=== PATIENT | male | born 1955 | race Caucasian/White ===

== ENCOUNTER 2017-02-02 14:27 | Emergency (ER) | payer OTHER ==
[2017-02-02 14:37] VITALS: BP 149/72; PULSE 74; TEMP 98.2; BMI 27.4
[2017-02-02] MEDS ORDERED: TETRACAINE 0.5% OPHTH SOLN 2 ML BOTTLE ONE (15:32)
--- NOTE | 2017-02-02 15:42 | PDOC ---
History of Present Illness - General Chief Complaint: Eye Problem Stated Complaint: EYE PROBLEM Time Seen by Provider: 02/02/17 14:59 History Source: Patient, Family (son) Exam Limitations: Language Barrier - History of Present Illness Initial Comments: 02/02/17 15:46 61 yr male history of DM, liver CA, high cholesterol presents to ER with left eye redness, itching and burning since yesterday morning woke up with discomfort. Pt denies injury, states he has blurred vision but no double vision or floaters. Pt does not have an eye doctor. Past History - Past Medical History Allergies/Adverse Reactions: Allergies Allergy/AdvReac Type Severity Reaction Status Date / Time Penicillins Allergy Intermediate Rash Verified 02/02/17 14:34 Home Medications: Ambulatory Orders Aspirin [ASA -] 81 mg PO DAILY 11/18/15 Atorvastatin Ca [Lipitor] 10 mg PO HS 11/18/15 Enalapril Maleate [Vasotec -] 20 mg PO DAILY 11/18/15 Gemfibrozil [Lopid -] 600 mg PO DAILY 11/18/15 Metformin HCl [Glucophage] 1,000 mg PO BID 11/18/15 Metoprolol Succinate [Toprol XL -] 25 mg PO DAILY 11/18/15 Terazosin HCl 2 mg PO DAILY 11/18/15 Cancer: Yes (colon, mets liver) Diabetes: Yes HTN: Yes Hypercholesterolemia: Yes Liver Disease: Yes (ca) - Immunization History Immunization Up to Date: Yes - Psycho/Social/Smoking Cessation Hx Suicidal Ideation: No Smoking History: Never smoked Hx Alcohol Use: No Drug/Substance Use Hx: No *Physical Exam - Vital Signs Last Vital Signs Temp Pulse Resp BP Pulse Ox 98.2 F 74 19 149/72 95 02/02/17 14:34 02/02/17 14:34 02/02/17 14:34 02/02/17 14:34 02/02/17 14:34 - Physical Exam General Appearance: Yes: Nourished, Appropriately Dressed HEENT: positive: EOMI, JENNA, Other (left eye with subconjunctival hemorrhage covering 75% sclera, tearing , PERLAEOMI no pain with EOM) Neck: positive: Supple Respiratory/Chest: positive: Lungs Clear, Normal Breath Sounds Cardiovascular: positive: Regular Rhythm, Regular Rate Extremity: positive: Normal Inspection, Normal Range of Motion Integumentary: positive: Normal Color, Dry, Warm Neurologic: positive: Fully Oriented, Alert, Normal Mood/Affect, Normal Response , Motor Strength 02/04 ED Treatment Course - Consult/PCP Time Called: 03:30 Consult Reason/Comments: optbernadette Saenz will see pt in office now Medical Decision Making - Medical Decision Making 02/02/17 15:49 cc: left eye red, tearing burning and itching no trauma no discharge blurry vision will consult optho peyton Saenz can see pt now in office son agrees to drive him there now to the office. *DC/Admit/Observation/Transfer Diagnosis at time of Disposition: Subconjunctival edema of left eye, Subconjunctival hemorrhage of left eye - Discharge Dispostion Disposition: HOME Condition at time of disposition: Good - Referrals Referrals: Liz Dixon [Primary Care Provider] - Bob Pichardo MD [Staff Physician] - - Patient Instructions Additional Instructions: please go directly to the eye doctors office now they are waiting for you [address] [facility] second floor [place], [place] (opthomologist)
== END 2017-02-02 16:03 | disposition home or self-care (01) ==
LOC: JERFT 14:27
DX: H11.422 Conjunctival edema, left eye (principal); H11.32 Conjunctival hemorrhage, left eye; Z85.038 Personal history of other malignant neoplasm of large intestine; I10 Essential (primary) hypertension; E78.00 Pure hypercholesterolemia, unspecified; Z85.05 Personal history of malignant neoplasm of liver
CPT/HCPCS: 99281-25

== ENCOUNTER 2017-03-31 14:13 | Inpatient (IN) | payer OTHER ==
[2017-03-31 14:20] VITALS: BMI 29.9
[2017-03-31] MEDS ORDERED: SODIUM CHLORIDE 1,000 ML IV SCH (14:30)
--- NOTE | 2017-03-31 14:48 | PDOC ---
History of Present Illness - General History Source: Patient, Family Exam Limitations: Language Barrier - History of Present Illness Initial Comments: 03/31/17 14:49 This is a 61 yo M with PMH of NIDDM2, colon ca with liver mets (dx 4 yrs ago), hld, htn, who presents due to abdominal pain x 4 days. He developed diarrhea 1 w ago, nonmelenous, nonbloody, evy colored. 4 days ago he took an immodium, which stopped diarrhea but soon after he developed central abd pain. It is constant, sharp, nonradiating, worst abd pain he has ever felt, has no aggravating or alleviated factors and associated with nausea and anorexia. His last chemo was 2 weeks ago, he has been on current chemo regimen for the past year. He has not started any new meds, has not eaten any new foods, has no sick contacts,has not recently been hospitalized or used abx. He reports weakness and h/a. He denies sob, chest pain, cough, dysuria, LE edema. 03/31/17 15:16 03/31/17 15:44 <Mel Denise - Last Filed: 03/31/17 19:00> <Adams Marroquin - Last Filed: 03/31/17 23:52> - General Chief Complaint: Pain Stated Complaint: DIARRHEA Time Seen by Provider: 03/31/17 14:27 Past History - Past Medical History Cancer: Yes (colon, mets liver, Getting Chemo) Diabetes: Yes HTN: Yes Hypercholesterolemia: Yes Liver Disease: Yes (ca) - Immunization History Immunization Up to Date: Yes - Psycho/Social/Smoking Cessation Hx Suicidal Ideation: No Smoking History: Never smoked Information on smoking cessation initiated: No Hx Alcohol Use: No Drug/Substance Use Hx: No Substance Use Type: None <Mel Denise - Last Filed: 03/31/17 19:00> <Adams Marroquin - Last Filed: 03/31/17 23:52> - Past Medical History Allergies/Adverse Reactions: Allergies Allergy/AdvReac Type Severity Reaction Status Date / Time Penicillins Allergy Intermediate Rash Verified 03/31/17 14:20 Home Medications: Ambulatory Orders Aspirin [ASA -] 81 mg PO DAILY 11/18/15 Atorvastatin Ca [Lipitor] 10 mg PO HS 11/18/15 Enalapril Maleate [Vasotec -] 20 mg PO DAILY 11/18/15 Gemfibrozil [Lopid -] 600 mg PO DAILY 11/18/15 Metformin HCl [Glucophage] 1,000 mg PO BID 11/18/15 Metoprolol Succinate [Toprol XL -] 25 mg PO DAILY 11/18/15 Terazosin HCl 2 mg PO DAILY 11/18/15 Review of Systems - Review of Systems Able to Perform ROS?: Yes Is the patient limited Welsh proficient: No Constitutional: No: Chills, Fever, Weight Stable HEENTM: No: Nose Congestion, Throat Pain, Difficulty Swallowing Respiratory: No: Cough, Orthopnea, Shortness of Breath, Stridor Cardiac (ROS): No: Chest Pain, Edema, Lightheadedness, Palpitations ABD/GI: Yes: Abdominal Distended, Diarrhea, Nausea, Poor Appetite, Abdominal cramping. No: Blood Streaked Bowels, Rectal Bleeding, Vomiting, Tarry Stools : No: Dysuria, Flank Pain Musculoskeletal: No: Back Pain, Joint Pain, Neck Pain Integumentary: No: Bruising, Erythema, Pruritus, Rash Neurological: Yes: Headache, Weakness. No: Numbness, Paresthesia Psychiatric: No: Depression Endocrine: No: Change in Weight Hematologic/Lymphatic: No: Easy Bleeding, Easy Bruising All Other Systems: Reviewed and Negative <Mel Denise - Last Filed: 03/31/17 19:00> *Physical Exam - Vital Signs Last Vital Signs Temp Pulse Resp BP Pulse Ox 97.5 F L 70 17 171/101 97 03/31/17 14:18 03/31/17 14:18 03/31/17 14:18 03/31/17 14:18 03/31/17 14:18 - Physical Exam Comments: 03/31/17 15:48 General: NAD, aao x 3 HEENT: normocephalic, atraumatic, PERRLA, EOMI, sclera anicteric, conjunctiva clear, moist mucous membranes CV: RRR S1S2 Resp: cta b/l GI: reduced bowel sounds, soft, mildly distended, moderately tender periumbilical region, no rebound, no guarding, no mass, LLQ port Rectal exam: empty vault. intact rectal tone, no lesions noted, not painful Neuro: CN II-XII grossly intact Musculoskeletal:no peripheral edema. 03/31/17 17:23 03/31/17 17:44 <Mel Denise - Last Filed: 03/31/17 19:00> - Vital Signs Last Vital Signs Temp Pulse Resp BP Pulse Ox 97.5 F L 70 17 171/101 97 03/31/17 14:18 03/31/17 14:18 03/31/17 14:18 03/31/17 14:18 03/31/17 14:18 <Adams Marroquin - Last Filed: 03/31/17 23:52> Heart Score/ECG Review #1 General ECG Interpretation: Sinus Rhythm, Normal Rate (alexsander 59), Normal Intervals, No acute ischemic changes <Mel Denise - Last Filed: 03/31/17 19:00> ED Treatment Course - LABORATORY CBC & Chemistry Diagram: 03/31/17 15:00 03/31/17 15:00 <Mel Denise - Last Filed: 03/31/17 19:00> - LABORATORY CBC & Chemistry Diagram: 03/31/17 15:00 03/31/17 15:00 - ADDITIONAL ORDERS Additional order review: Laboratory Results 03/31/17 03/31/17 03/31/17 16:20 15:35 15:00 Sodium 137 Potassium 4.0 Chloride 104 Carbon Dioxide 25 Anion Gap 8 BUN 11 Creatinine 0.7 Creat Clearance w eGFR > 60 Random Glucose 127 H Lactic Acid 0.6 Calcium 8.8 Total Bilirubin 0.9 AST 161 H ALT 134 H Alkaline Phosphatase 191 H Total Protein 7.7 Albumin 4.0 Lipase 59 L Stool Occult Blood Negative 03/31/17 15:00 RBC 3.80 L MCV 87.6 MCHC 33.3 RDW 18.0 H MPV 7.1 L Neutrophils % 71.7 Lymphocytes % 16.1 Monocytes % 10.9 H Eosinophils % 1.0 Basophils % 0.3 - Medications Given in the ED: ED Medications Discontinued Medications Generic Name Dose Route Start Last Admin Trade Name Freq PRN Reason Stop Dose Admin Morphine Sulfate 2 mg 03/31/17 15:10 03/31/17 15:26 Morphine Injection - IVPUSH 03/31/17 15:11 2 mg ONCE ONE Administration Ondansetron HCl 4 mg 03/31/17 15:10 03/31/17 15:26 Zofran Injection IVPUSH 03/31/17 15:11 4 mg ONCE ONE Administration <Adams Marroquin - Last Filed: 03/31/17 23:52> Medical Decision Making - Medical Decision Making 03/31/17 15:51 Patient presents with diarrhea that was stopped with over the counter meds and now has abd pain r/o c diff, infectious colitis, obstruction, chemo related colonic edema. CBC w diff cmp lactic acid, lipase, c diff, stool occult, stool gram stain and culture ekg CT and w PO and IV contrast IVF 1L NS, morphine, zofran 03/31/17 15:55 CBC no white count, mild anemia cmp transaminitis with no labs to compare to, it is consistent with hepatic mets , low suspicion for cholangitis at this time considering wnl t bili and wbc Laboratory Tests 03/31/17 15:00 AST 161 H ALT 134 H Alkaline Phosphatase 191 H 03/31/17 15:56 bedside US shows nondilated bile ducts blood occult negative 03/31/17 15:57 03/31/17 15:57 CT abdoment and pelvis with po and iv contrast pending. 03/31/17 17:28 03/31/17 17:28 03/31/17 17:29 03/31/17 19:00 <Mel Denise - Last Filed: 03/31/17 19:00> *DC/Admit/Observation/Transfer <Mel Denise - Last Filed: 03/31/17 19:00> - Discharge Dispostion Admit: Yes <Adams Marroquin - Last Filed: 03/31/17 23:52> Diagnosis at time of Disposition: Ileus Abdominal pain Qualifiers: Abdominal location: unspecified location Qualified Code(s): R10.9 - Unspecified abdominal pain - Discharge Dispostion Condition at time of disposition: Fair - Referrals Referrals: Liz Dixon [Primary Care Provider] -
--- NOTE | 2017-03-31 14:52 | PDOC ---
Attending Attestation - Resident Resident Name: CameliaGmMel - ED Attending Attestation I have performed the following: I have examined & evaluated the patient, The case was reviewed & discussed with the resident, I agree w/resident's findings & plan, Exceptions are as noted - HPI HPI: 03/31/17 14:52 The patient is a 61 year old male with a significant past medical history of HTN , HLD, DM2 and metastatic colon cancer who presents with abdominal pain and diarrhea. The diarrhea has been intermittent for the past 2 weeks. He reports 2-4 episodes per day (no blood or mucous). He took Immodium 4 days ago and then several hours later developed abdominal pain. It is diffuse, constant, non -radiating. He has had nausea with decreased po intake. No vomiting. Last chemotherapy 2 weeks ago. No recent hospitalization or antibiotic use. No PPI use. - Physicial Exam PE: 03/31/17 14:53 Vitals noted Mild abdominal tenderness to deep palpation diffusely, most pronounced in the honey-umbillical area. There is mild distention. Bowel sounds are somewhat decreased. Midline vertical scar (partial colectomy) 03/31/17 15:18 - Medical Decision Making 03/31/17 15:19 He is well appearing and in no acute distress Will obtain labs including lactic acid We will require CT imaging 03/31/17 16:[address] pending Urinalysis pending Lactic acid pending 03/31/17 16:30 03/31/17 16:49 Stool guaic negative Lactic acid pending CT pending Clinical impression: Abdominal pain Case discussed in detail with oncoming Emergency Physician including history, physical exam and ancillary studies. Oncoming Emergency Physician has assumed care for the patient and will complete the evaluation and treatment. Discharge Disposition - Diagnosis Abdominal pain - Referrals Referrals: Liz Dixon [Primary Care Provider] -
[2017-03-31] MEDS ORDERED: ONDANSETRON 4 MG/2 ML VIAL IVPUSH ONE (15:10)
[2017-03-31] MEDS ORDERED: morphine CARPU-JECT 2 MG/1 ML DISP.SYRIN IVPUSH ONE (15:10)
[2017-03-31] MEDS ORDERED: morphine CARPU-JECT 2 MG/1 ML DISP.SYRIN ONE (15:18)
[2017-03-31] MEDS ORDERED: ONDANSETRON 4 MG/2 ML VIAL ONE (15:19)
[2017-03-31 15:33] LABS: BASOPHIL 0.3 % (0-2.0); MCH 29.2 pg (25.7-33.7); MCHC 33.3 g/dl (32.0-35.9); MEAN CELL VOLUME 87.6 fl (80-96); MEAN PLT VOLUME 7.1 fl (7.5-11.1); NEUTROPHILS 71.7 % (42.8-82.8); PLATELET COUNT 189 K/MM3 (134-434); WHITE BLOOD COUNT 4.8 K/mm3 (4.0-10.0)
[2017-03-31 15:44] LABS: ALK PHOS 191 U/L (45-117); ANION GAP 8 (8-16); BILIRUBIN,TOTAL 0.9 mg/dL (0.2-1.0); CALCIUM 8.8 mg/dL (8.5-10.1); CO2 25 mmol/L (21-32); CREATININE 0.7 mg/dL (0.7-1.3); GLUCOSE,RANDOM 127 mg/dL (74-106); SGPT/ALT 134 U/L (12-78); TOT PROT 7.7 g/dl (6.4-8.2)
[2017-03-31 15:45] LABS: SGOT/AST 161 U/L (15-37)
--- NOTE | 2017-03-31 15:54 | EKG ---
Test Reason : Blood Pressure : / mmHG Vent. Rate : 059 BPM Atrial Rate : 059 BPM P-R Int : 192 ms QRS Dur : 092 ms QT Int : 408 ms P-R-T Axes : 034 039 051 degrees QTc Int : 403 ms SINUS BRADYCARDIA OTHERWISE NORMAL ECG NO PREVIOUS ECGS AVAILABLE Confirmed by MITUL OLEARY MD ([id number]) on 03/31/2017 3:53:36 PM Referred By: Confirmed By:MITUL OLEARY MD
[2017-03-31] MEDS ORDERED: DEXTROSE 5%-0.45% SALINE 1,000 ML IV SCH (23:30)
--- NOTE | 2017-04-01 00:14 | HP ---
CHIEF COMPLAINT: Abdominal Pain PCP: Dr. Liz Kearney Oncologist: Dr. Wil Abreu ([facility] [place] [place] [address], ) HISTORY OF PRESENT ILLNESS: This is a 61 y/o male with a significant medical history of Metastatic Colon Ca 2014 (on chemo), Diabetes, Dyslipidemia, Who presents to the ED with abdominal pain x 4 days. Patient is Italian speaking, his granddaughter translated. Patient reports the quality as sharp, constant non radiating. He reports having watery diarrhea non melanous, non bloody x 1 week, he took Lomotil for 4 days. Patient denies fever, chills, cough, SOB, dizziness, CP, melena, hematochezia, dysuria. Patient denies any new medications, food or recent sick exposures. Last chemo- 2 weeks ago. ER course was notable for: (1) CTAP- Possible mild ileus, small left ingunial hernia fat.small amt free fluids, small right ingunial hernia fat containing (2) Transaminitis- 161/134/194 (3) Stool Occult- negative Recent Travel: None PAST MEDICAL HISTORY: See HPI PAST SURGICAL HISTORY: s/p cholececomy Colon Resection Partial Colectomy Percutaneous drainage catheter Social History: Smoking: Never Alcohol: Denies Drugs: Denies Lives with family Family History: Non Contributory Allergies Penicillins Allergy (Intermediate, Verified 03/31/17 14:20) Rash HOME MEDICATIONS: Home Medications Medication Instructions Recorded Aspirin [ASA -] 81 mg PO DAILY 11/18/15 Atorvastatin Ca [Lipitor] 10 mg PO HS 11/18/15 Enalapril Maleate [Vasotec -] 20 mg PO DAILY 11/18/15 Gemfibrozil [Lopid -] 600 mg PO DAILY 11/18/15 Metformin HCl [Glucophage] 1,000 mg PO BID 11/18/15 Metoprolol Succinate [Toprol XL -] 25 mg PO DAILY 11/18/15 Terazosin HCl 2 mg PO DAILY 11/18/15 REVIEW OF SYSTEMS CONSTITUTIONAL: Absent: fever, chills, diaphoresis, generalized weakness, malaise, loss of appetite, weight change HEENT: Absent: rhinorrhea, nasal congestion, throat pain, throat swelling, difficulty swallowing, mouth swelling, ear pain, eye pain, visual changes CARDIOVASCULAR: Absent: chest pain, syncope, palpitations, irregular heart rate, lightheadedness , peripheral edema RESPIRATORY: Absent: cough, shortness of breath, dyspnea with exertion, orthopnea, wheezing, stridor, hemoptysis GASTROINTESTINAL: abdominal pain, nausea, vomiting, diarrhea, constipation, Absent: abdominal distension, melena, hematochezia GENITOURINARY: Absent: dysuria, frequency, urgency, hesitancy, hematuria, flank pain, genital pain MUSCULOSKELETAL: Absent: myalgia, arthralgia, joint swelling, back pain, neck pain SKIN: Absent: rash, itching, pallor HEMATOLOGIC/IMMUNOLOGIC: Absent: easy bleeding, easy bruising, lymphadenopathy, frequent infections ENDOCRINE: Absent: unexplained weight gain, unexplained weight loss, heat intolerance, cold intolerance NEUROLOGIC: headache Absent: focal weakness or paresthesias, dizziness, unsteady gait, seizure, mental status changes, bladder or bowel incontinence PSYCHIATRIC: Absent: anxiety, depression, suicidal or homicidal ideation, hallucinations. PHYSICAL EXAMINATION GENERAL: Awake, alert, and fully oriented, in no acute distress. HEAD: Normal with no signs of trauma. EYES: Pupils equal, round and reactive to light, extraocular movements intact, sclera anicteric, conjunctiva clear. No lid lag. EARS, NOSE, THROAT: Dry mucous membranes. Ears normal, nares patent, oropharynx clear without exudates. NECK: Normal range of motion, supple without lymphadenopathy, JVD, or masses. LUNGS: Breath sounds equal, clear to auscultation bilaterally. No wheezes, and no crackles. No accessory muscle use. HEART: Regular rate and rhythm, normal S1 and S2 without murmur, rub or gallop. ABDOMEN: Soft, mildly distended, umbilical and mid lower quad tenderness, hypoactive bowel sounds, port LLQ. No guarding, no rebound, no masses. No hepatomegaly or splenomegaly. MUSCULOSKELETAL: Normal range of motion at all joints. No bony deformities or tenderness. No CVA tenderness. UPPER EXTREMITIES: 2+ pulses, warm, well-perfused. No cyanosis. No clubbing. No peripheral edema. LOWER EXTREMITIES: 2+ pulses, warm, well-perfused. No calf tenderness. No peripheral edema. NEUROLOGICAL: Cranial nerves II-XII intact. Normal speech. Gait not observed. PSYCHIATRIC: Cooperative. Good eye contact. Appropriate mood and affect. SKIN: Warm, dry, normal turgor, no rashes or lesions noted, normal capillary refill. Laboratory Results - last 24 hr 03/31/17 03/31/17 03/31/17 15:00 15:00 15:35 WBC 4.8 RBC 3.80 L Hgb 11.1 L Hct 33.3 L MCV 87.6 MCHC 33.3 RDW 18.0 H Plt Count 189 MPV 7.1 L Neutrophils % 71.7 Lymphocytes % 16.1 Monocytes % 10.9 H Eosinophils % 1.0 Basophils % 0.3 Sodium 137 Potassium 4.0 Chloride 104 Carbon Dioxide 25 Anion Gap 8 BUN 11 Creatinine 0.7 Creat Clearance w eGFR > 60 Random Glucose 127 H Lactic Acid 0.6 Calcium 8.8 Total Bilirubin 0.9 AST 161 H ALT 134 H Alkaline Phosphatase 191 H Total Protein 7.7 Albumin 4.0 Lipase 59 L Stool Occult Blood 03/31/17 16:20 WBC RBC Hgb Hct MCV MCHC RDW Plt Count MPV Neutrophils % Lymphocytes % Monocytes % Eosinophils % Basophils % Sodium Potassium Chloride Carbon Dioxide Anion Gap BUN Creatinine Creat Clearance w eGFR Random Glucose Lactic Acid Calcium Total Bilirubin AST ALT Alkaline Phosphatase Total Protein Albumin Lipase Stool Occult Blood Negative ASSESSMENT/PLAN: This is a 61 y/o male PMHx of: Metastatic Colon Ca 2014 (on chemo), DM, HLD. Admitted to M/S with Abdominal Pain, ? Ileus for further evaluation of their emergent condition. 1. GI: Ileus - Likely secondary to advance metastatic disease - CTAP- reviewed - Appreciate Surgical Consult - NGT - NPO - IVF - Monitor CBC, BMP - Avoid opioids 2. Abdominal Pain - See above 3. Metastatic Colon Ca - Contacted patient's niece (Raissa Gaitan, ), the patient is receiving chemo Q2 weeks, due Sunday 04/01. - Will need to verify with patient's Oncologist Dr. Wil Marcum ([phone]) , from [facility] [place] - Appreciate Oncology Consult 4. Transaminitis - Likely secondary to chemo - Monitor LFTs 5. Hyperlipidema - Will hold home med, until tolerating PO 6. Diabetes - BGMs - ISS - Hold Metformin 7. FEN - D5 1/2NS@60cc/hr - Replete lytes prn - NPO 8. DVT Prophylaxis - SCDs - Heparin SQ Code Status: Full Code Dispo: Requires Inpatient Care Problem List - Problem (1) Ileus Code(s): K56.7 - ILEUS, UNSPECIFIED (2) Abdominal pain Code(s): R10.9 - UNSPECIFIED ABDOMINAL PAIN Qualifiers: Abdominal location: unspecified location Qualified Code(s): R10.9 - Unspecified abdominal pain (3) Transaminitis Code(s): R74.0 - NONSPEC ELEV OF LEVELS OF TRANSAMNS & LACTIC ACID DEHYDRGNSE (4) Colon cancer metastasized to liver Code(s): C18.9 - MALIGNANT NEOPLASM OF COLON, UNSPECIFIED C78.7 - SECONDARY MALIG NEOPLASM OF LIVER AND INTRAHEPATIC BILE DUCT (5) Dyslipidemia Code(s): E78.5 - HYPERLIPIDEMIA, UNSPECIFIED (6) Diabetes mellitus Code(s): E11.9 - TYPE 2 DIABETES MELLITUS WITHOUT COMPLICATIONS (7) DVT prophylaxis Code(s): [id number] - Visit type - Emergency Visit Emergency Visit: Yes ED Registration Date: 03/31/17 Care time: The patient presented to the Emergency Department on the above date and was hospitalized for further evaluation of their emergent condition. - New Patient This patient is new to me today: Yes Date on this admission: 03/31/17 - Critical Care Critical Care patient: No
[2017-04-01] MEDS ORDERED: KETOROLAC TROMETHAMINE 30 MG/1 ML VIAL IVPUSH ONE (00:15)
[2017-04-01] MEDS ORDERED: KETOROLAC TROMETHAMINE 30 MG/1 ML VIAL ONE (01:30)
[2017-04-01 08:11] LABS: BASOPHIL 0.3 % (0-2.0); MCH 29.6 pg (25.7-33.7); MCHC 34.3 g/dl (32.0-35.9); MEAN CELL VOLUME 86.2 fl (80-96); MEAN PLT VOLUME 6.8 fl (7.5-11.1); NEUTROPHILS 61.3 % (42.8-82.8); PLATELET COUNT 156 K/MM3 (134-434); RDW 17.9 % (11.9-15.9)
--- NOTE | 2017-04-01 08:13 | PN ---
Physical Exam: SUBJECTIVE: Patient seen and examined OBJECTIVE: Vital Signs Period Temp Pulse Resp BP Sys/Elder Pulse Ox Last 24 Hr 97.5 F-98 F 55-60 16-20 135-153/75-79 96-96 GENERAL: The patient is awake, alert, and fully oriented, in no acute distress. HEAD: Normal with no signs of trauma. EYES: PERRL, extraocular movements intact, sclera anicteric, conjunctiva clear. No ptosis. ENT: Ears normal, nares patent, oropharynx clear without exudates, moist mucous membranes. NECK: Trachea midline, full range of motion, supple. LUNGS: Breath sounds equal, clear to auscultation bilaterally, no wheezes, no crackles, no accessory muscle use. HEART: Regular rate and rhythm, S1, S2 without murmur, rub or gallop. ABDOMEN: Soft, nontender, nondistended, normoactive bowel sounds, no guarding, no rebound, no hepatosplenomegaly, no masses. EXTREMITIES: 2+ pulses, warm, well-perfused, no edema. NEUROLOGICAL: Cranial nerves II through XII grossly intact. Normal speech, gait not observed. PSYCH: Normal mood, normal affect. SKIN: Warm, dry, normal turgor, no rashes or lesions noted Active Medications Generic Name Dose Route Start Last Admin Trade Name Freq PRN Reason Stop Dose Admin Heparin Sodium (Porcine) 5,000 unit 04/01/17 10:00 Heparin - SQ BID [facility] Dextrose/Sodium Chloride 1,000 mls @ 125 mls/hr 03/31/17 23:30 03/31/17 23:45 D5-1/2ns - IV 125 mls/hr ASDIR [facility] Administration ASSESSMENT/PLAN:
[2017-04-01 08:41] LABS: ANION GAP 8 (8-16); CALCIUM 8.2 mg/dL (8.5-10.1); CO2 27 mmol/L (21-32); CREATININE 0.7 mg/dL (0.7-1.3); GLUCOSE,RANDOM 146 mg/dL (74-106)
[2017-04-01] MEDS ORDERED: ACETAMINOPHEN 325 MG TABLET (FP) PO PRN (08:54)
[2017-04-01] MEDS: HEPARIN NA (PORCINE) 5,000 UNITS/ML 1ML VIAL SQ SCH ×2 (09:12→21:29)
[2017-04-01] MEDS: ACETAMINOPHEN 650 MG SUPP.RECT PR PRN (09:28)
[2017-04-01 09:51] LABS: URINE APPEARANCE CLEAR; URINE BILIRUBIN NEGATIVE (NEGATIVE); URINE BLOOD NEGATIVE (NEGATIVE); URINE COLOR LTYELLOW; URINE GLUCOSE (UA) NEGATIVE (NEGATIVE); URINE KETONE TRACE (NEGATIVE); URINE LEUK ESTERASE NEGATIVE (NEGATIVE); URINE NITRITE NEGATIVE (NEGATIVE); URINE PROTEIN NEGATIVE (NEGATIVE); URINE UROBILINOGEN NEGATIVE E.U./dl (0.2-1.0)
--- NOTE | 2017-04-01 10:30 | PN ---
Physical Exam: SUBJECTIVE: Patient seen and examined in bed. States his current pain level is 4 /10. NGT in place, connected to LWS. No output from NGT. Passing flatus. No stool. OBJECTIVE: Vital Signs 3 Period Temp Pulse Resp BP Sys/Elder Pulse Ox Last 24 Hr 97.5 F-98 F 55-60 16-20 135-153/75-79 96-96 GENERAL: The patient is awake, alert, and fully oriented, in no acute distress. HEAD: Normal with no signs of trauma. EYES: PERRL, extraocular movements intact, sclera anicteric, conjunctiva clear. No ptosis. ENT: Ears normal, nares patent, oropharynx clear without exudates, moist mucous membranes. NGT in Left nare. LUNGS: Breath sounds equal, clear to auscultation bilaterally, no wheezes, no crackles, no accessory muscle use. HEART: Regular rate and rhythm, S1, S2 without murmur, rub or gallop. ABDOMEN: Soft, nontender, nondistended, normoactive bowel sounds, no guarding, no rebound, no hepatosplenomegaly. Implanted mediport noted to left middle abdomen. EXTREMITIES: 2+ pulses, warm, well-perfused, no edema. NEUROLOGICAL: Cranial nerves II through XII grossly intact. Normal speech, gait not observed. PSYCH: Normal mood, normal affect. SKIN: Warm, dry, normal turgor, no rashes or lesions noted Laboratory Results - last 24 hr 3 04/01/17 04/01/17 06:50 06:50 WBC 3.0 L D RBC 3.41 L Hgb 10.1 L Hct 29.4 L MCV 86.2 MCHC 34.3 RDW 17.9 H Plt Count 156 MPV 6.8 L Neutrophils % 61.3 Lymphocytes % 23.3 D Monocytes % 13.1 H Eosinophils % 2.0 D Basophils % 0.3 Sodium 138 Potassium 3.4 L Chloride 103 Carbon Dioxide 27 Anion Gap 8 BUN 10 Creatinine 0.7 Random Glucose 146 H Calcium 8.2 L Active Medications 3 Generic Name Dose Route Start Last Admin Trade Name Freq PRN Reason Stop Dose Admin Acetaminophen 650 mg 04/01/17 09:01 04/01/17 09:28 Tylenol Suppository - ID 650 mg Q6H PRN Administration FEVER OR PAIN Heparin Sodium (Porcine) 5,000 unit 04/01/17 10:00 04/01/17 09:12 Heparin - SQ 5,000 unit BID GERONIMO Administration Dextrose/Sodium Chloride 1,000 mls @ 125 mls/hr 03/31/17 23:30 03/31/17 23:45 D5-1/2ns - IV 125 mls/hr ASDIR GERONIMO Administration Imaging: CTAP w/and w/o as read by Jack: Status post cholecystectomy. Percutaneous drainage catheter in place. Small amount of free fluid in gallbladder fossa and hepatorenal fossa. Several hepatic hypodense lesions are noted which may be the basis of neoplastic disease. Possible mild to moderate ileus. Small left inguinal hernia containing fat and a small amount of free fluid. Small right inguinal hernia containing fat only. ASSESSMENT/PLAN: A: 61yo man with partial SBO likely from metastatic colon CA. WBC downtrending. Denies infectious symptoms. Remains afebrile. P: 1. SBO- likely from colon CA - NGT-> LWS - monitor electrolytes - KCL 10mEq IVSS for K-3.4 down from 4.0 - NPO - change fluids to D5-1/2NS with 20mEq KCl @125 - appreciate surgical consult 2. Abdominal pain - see above 3. Leukopenia - WBC 4.8->3.0 - likely from opal - trend fevers - due for chemo dose today- ok to hold per Wil Marcum [place] [facility] [place] 4. Transaminitis - repeat now and daily - likely from chemo 5. DM - FSBG qACHS - ISS 6. HLD - hold home meds given transaminitis 7. F/E/N - D5-1/2NS with 20mEq Kcl@125 - NPO - replete prn 8. PPX - heparin - oob Visit type - Emergency Visit Emergency Visit: Yes ED Registration Date: 03/31/17 Care time: The patient presented to the Emergency Department on the above date and was hospitalized for further evaluation of their emergent condition. - New Patient This patient is new to me today: Yes Date on this admission: 04/01/17 - Critical Care Critical Care patient: No
[2017-04-01] MEDS: D5-1/2NS+20 MEQ KCL - 1,000 ML IV SCH (11:00)
[2017-04-01] MEDS ORDERED: KCL 10 MEQ IVPB 100 ML IVPB SCH (11:10)
[2017-04-01 11:46] LABS: ALBUMIN 3.3 g/dl (3.4-5.0); ANION GAP 9 (8-16); BILIRUBIN,TOTAL 0.7 mg/dL (0.2-1.0); CALCIUM 8.3 mg/dL (8.5-10.1); CO2 25 mmol/L (21-32); CREATININE 0.7 mg/dL (0.7-1.3); GLUCOSE,RANDOM 151 mg/dL (74-106); SGOT/AST 153 U/L (15-37); SGPT/ALT 158 U/L (12-78); TOT PROT 6.5 g/dl (6.4-8.2)
[2017-04-01 11:47] LABS: ALK PHOS 219 U/L (45-117)
--- NOTE | 2017-04-01 19:03 | CONSULT ---
Consult Consult Specialty:: Surgery: Reason for Consultation:: Abdominal pain - History of Present Illness History of Present Illness: Patient with metastatic colon cancer with metastasis to liver , c/o vague abdominal pain, No nausea, no vomitind. He has been receiving chemotherapy. - History Source History Provided By: Patient Limitations to Obtaining History: Language Barrier - Alcohol/Substance Use Hx Alcohol Use: No - Smoking History Smoking history: Never smoked Home Medications - Allergies Allergies/Adverse Reactions: Allergies Allergy/AdvReac Type Severity Reaction Status Date / Time Penicillins Allergy Intermediate Rash Verified 03/31/17 14:20 - Home Medications Home Medications: Ambulatory Orders Aspirin [ASA -] 81 mg PO DAILY 11/18/15 Atorvastatin Ca [Lipitor] 10 mg PO HS 11/18/15 Enalapril Maleate [Vasotec -] 20 mg PO DAILY 11/18/15 Gemfibrozil [Lopid -] 600 mg PO DAILY 11/18/15 Metformin HCl [Glucophage] 1,000 mg PO BID 11/18/15 Metoprolol Succinate [Toprol XL -] 25 mg PO DAILY 11/18/15 Terazosin HCl 2 mg PO DAILY 11/18/15 Physical Exam Vital Signs: Vital Signs Temperature 98.1 F 04/01/17 14:15 Pulse Rate 57 L 04/01/17 14:15 Respiratory Rate 22 04/01/17 09:00 Blood Pressure 162/78 04/01/17 14:15 O2 Sat by Pulse Oximetry (%) 94 L 04/01/17 09:00 Labs: CBC, BMP 04/01/17 06:50 04/01/17 06:50 Imaging - Results Cat Scan: Report Reviewed, Image Reviewed Problem List - Problems (1) Abdominal pain Code(s): R10.9 - UNSPECIFIED ABDOMINAL PAIN Qualifiers: Abdominal location: unspecified location (2) Liver metastasis Code(s): C78.7 - SECONDARY MALIG NEOPLASM OF LIVER AND INTRAHEPATIC BILE DUCT (3) Carcinoma of colon Code(s): C18.9 - MALIGNANT NEOPLASM OF COLON, UNSPECIFIED Assessment/Plan Patient does not have any acute abdominal events, no obstruction . Ct scan is normal. No acute surgical event.
[2017-04-02] MEDS: D5-1/2NS+20 MEQ KCL - 1,000 ML IV SCH ×2 (00:02→17:31)
[2017-04-02 09:02] LABS: BASOPHIL 0.1 % (0-2.0); EOSINOPHIL 1.3 % (0-4.5); MCH 29.5 pg (25.7-33.7); MCHC 33.7 g/dl (32.0-35.9); MEAN CELL VOLUME 87.6 fl (80-96); MEAN PLT VOLUME 6.6 fl (7.5-11.1); PLATELET COUNT 166 K/MM3 (134-434); RDW 18.3 % (11.9-15.9); WHITE BLOOD COUNT 4.6 K/mm3 (4.0-10.0)
--- NOTE | 2017-04-02 09:11 | PN ---
Physical Exam: SUBJECTIVE: Patient seen and examined seated on edge of bed. Has mild abdominal pain. NGT removed. OBJECTIVE: Vital Signs Period Temp Pulse Resp BP Sys/Elder Pulse Ox Last 24 Hr 98.1 F-99.0 F 57-64 16-20 153-168/78-95 GENERAL: The patient is awake, alert, and fully oriented, in no acute distress. HEAD: Normal with no signs of trauma. LUNGS: Breath sounds equal, clear to auscultation bilaterally, no wheezes, no crackles, no accessory muscle use. HEART: Regular rate and rhythm, S1, S2 without murmur, rub or gallop. ABDOMEN: Soft, mild RUQ tenderness, nondistended, normoactive bowel sounds, no guarding, no rebound EXTREMITIES: 2+ pulses, warm, well-perfused, no edema. NEUROLOGICAL: Cranial nerves II through XII grossly intact. Normal speech, moving all extremities. Laboratory Results - last 24 hr 04/01/17 06:50 Sodium 139 Potassium 3.5 Chloride 105 Carbon Dioxide 25 Anion Gap 9 BUN 9 Creatinine 0.7 Creat Clearance w eGFR > 60 Random Glucose 151 H Calcium 8.3 L Total Bilirubin 0.7 D AST 153 H ALT 158 H Alkaline Phosphatase 219 H Total Protein 6.5 Albumin 3.3 L Active Medications Generic Name Dose Route Start Last Admin Trade Name Freq PRN Reason Stop Dose Admin Acetaminophen 650 mg 04/01/17 09:01 04/01/17 09:28 Tylenol Suppository - [place] 650 mg Q6H PRN Administration FEVER OR PAIN Heparin Sodium (Porcine) 5,000 unit 04/01/17 10:00 04/01/17 21:29 Heparin - SQ 5,000 unit BID GERONIMO Administration Potassium Chloride/Dextrose/Sod Cl 1,000 mls @ 125 mls/hr 04/01/17 10:45 00:02 D5-1/2ns+20 Meq Kcl - IV 125 mls/hr ASDIR GERONIMO Administration Imaging 03/31 CTAP: possible minimal to mild ileus ASSESSMENT/PLAN 61 year-old male with a PMH of HTN, HLD, NIDDM, BPH, and metastatic colon cancer. Admitted with abdominal pain. Abdominal pain --seen and evaluated by surgery who reads CT scan as normal, no acute surgical event --NG tube removed; no nausea, vomiting; advance diet --no diarrhea; C. diff antigen positive, toxin negative; will start empiric flagyl for 7 day course Metastatic colon cancer --was due for chemo dose on 04/01; Dr. Marcum, oncologist at [facility] [place] aware Transaminitis --likely secondary to chemo --improving NIDDM --Novolog sliding scale coverage Hypertension --continue metoprolol, enalapril Hyperlipidemia --continue Lipitor BPH --continue terazosin F/E/N Fluids: PO intake adequate Electrolytes: replete as indicated Nutrition: full liquid low sodium DVT prophylaxis: subq heparin, oob, ambulation Dispo: continues to require inpatient care. Full code. Visit type - Emergency Visit Emergency Visit: Yes ED Registration Date: 03/31/17 Care time: The patient presented to the Emergency Department on the above date and was hospitalized for further evaluation of their emergent condition. - New Patient This patient is new to me today: Yes Date on this admission: 04/02/17 - Critical Care Critical Care patient: No
[2017-04-02 09:27] LABS: ALBUMIN 3.3 g/dl (3.4-5.0); ANION GAP 9 (8-16); CALCIUM 8.4 mg/dL (8.5-10.1); CO2 26 mmol/L (21-32); GLUCOSE,RANDOM 158 mg/dL (74-106)
[2017-04-02 09:30] LABS: ALK PHOS 225 U/L (45-117); BILIRUBIN,TOTAL 0.7 mg/dL (0.2-1.0); CREATININE 0.6 mg/dL (0.7-1.3); SGOT/AST 89 U/L (15-37); SGPT/ALT 127 U/L (12-78); TOT PROT 6.8 g/dl (6.4-8.2)
[2017-04-02] MEDS: HEPARIN NA (PORCINE) 5,000 UNITS/ML 1ML VIAL SQ SCH ×2 (10:46→21:44)
[2017-04-02] MEDS: ACETAMINOPHEN 650 MG SUPP.RECT PR PRN (10:58)
--- NOTE | 2017-04-02 13:10 | PN ---
Progress Note, Physician - Current Medication List Current Medications: Active Medications Acetaminophen (Tylenol Suppository -) 650 mg MO Q6H PRN PRN Reason: FEVER OR PAIN Last Admin: 04/02/17 10:58 Dose: 650 mg Heparin Sodium (Porcine) (Heparin -) 5,000 unit SQ BID [facility] Last Admin: 04/02/17 10:46 Dose: 5,000 unit Potassium Chloride/Dextrose/Sod Cl (D5-1/2ns+20 Meq Kcl -) 1,000 mls @ 125 mls/ hr IV ASDIR [facility] Last Admin: 04/02/17 00:02 Dose: 125 mls/hr - Objective Vital Signs: Vital Signs Temperature 99.0 F 04/02/17 06:00 Pulse Rate 64 04/02/17 06:00 Respiratory Rate 18 04/02/17 09:00 Blood Pressure 153/94 04/02/17 06:00 O2 Sat by Pulse Oximetry (%) 95 04/02/17 09:00 Labs: CBC, BMP 04/02/17 07:45 04/02/17 07:45 Problem List - Problems (1) Abdominal pain Code(s): R10.9 - UNSPECIFIED ABDOMINAL PAIN Qualifiers: Abdominal location: unspecified location (2) Liver metastasis Code(s): C78.7 - SECONDARY MALIG NEOPLASM OF LIVER AND INTRAHEPATIC BILE DUCT (3) Carcinoma of colon Code(s): C18.9 - MALIGNANT NEOPLASM OF COLON, UNSPECIFIED Assessment/Plan He feels better , has some pain in right upper quadrant of abdomen. No nausea, no vomiting. Abdomen is soft , not tender, no distention. Continue pallaitive care.
[2017-04-02] MEDS ORDERED: ACETAMINOPHEN 325 MG TABLET (FP) PO PRN (13:11)
[2017-04-02] MEDS: METRONIDAZOLE 500 MG PREMIXED 100 ML IVPB SCH ×2 (13:36→17:31)
[2017-04-02] MEDS ORDERED: PATIENT'S OWN MEDICATION (NON-FORMULARY) (Enalapril Maleate [Vasotec -] 20 MG) PO SCH (18:15)
[2017-04-02] MEDS ORDERED: TERAZOSIN HCL 2 MG CAPSULE PO SCH (18:15)
[2017-04-02] MEDS ORDERED: PT OWN MED DRAWER 7, Y5N ONE (18:31)
[2017-04-02] MEDS: ASPIRIN 81 MG CHEWABLE TABLETS PO SCH (18:35)
[2017-04-02] MEDS: METOPROLOL SUCCINATE 25 MG TAB.SR.24H (FP) PO SCH (18:35)
[2017-04-02] MEDS: GEMFIBROZIL 600 MG TABLET (FP) PO SCH (18:35)
[2017-04-02] MEDS: INSULIN SLIDING SCALE (NOVOLOG) 1 VIAL SQ SCH (21:44)
[2017-04-02] MEDS: TERAZOSIN HCL 1 MG CAPSULE PO SCH (21:51)
[2017-04-02] MEDS: ENALAPRIL MALEATE 10 MG TABLET (FP) PO SCH (21:51)
[2017-04-02] MEDS ORDERED: ATORVASTATIN CA 10 MG TABLET (FP) PO SCH (22:00)
[2017-04-03] MEDS: METRONIDAZOLE 500 MG PREMIXED 100 ML IVPB SCH ×2 (02:01→10:30)
[2017-04-03] MEDS: INSULIN SLIDING SCALE (NOVOLOG) 1 VIAL SQ SCH ×2 (06:33→11:40)
[2017-04-03] MEDS ORDERED: PT OWN MED DRAWER 7, Y5N ONE (10:18)
[2017-04-03] MEDS: TERAZOSIN HCL 1 MG CAPSULE PO SCH (10:30)
[2017-04-03] MEDS: ENALAPRIL MALEATE 10 MG TABLET (FP) PO SCH (10:30)
[2017-04-03] MEDS: HEPARIN NA (PORCINE) 5,000 UNITS/ML 1ML VIAL SQ SCH (10:30)
[2017-04-03] MEDS: GEMFIBROZIL 600 MG TABLET (FP) PO SCH (10:30)
[2017-04-03] MEDS: METOPROLOL SUCCINATE 25 MG TAB.SR.24H (FP) PO SCH (10:31)
[2017-04-03] MEDS: ASPIRIN 81 MG CHEWABLE TABLETS PO SCH (10:31)
--- NOTE | 2017-04-03 12:47 | PN ---
Progress Note, Physician - Current Medication List Current Medications: Active Medications Acetaminophen (Tylenol -) 650 mg PO Q6H PRN PRN Reason: FEVER OR PAIN Last Admin: 04/02/17 14:57 Dose: 650 mg Aspirin (Asa -) 81 mg PO DAILY [facility] Last Admin: 04/03/17 10:31 Dose: 81 mg Atorvastatin Calcium (Lipitor -) 10 mg PO HS [facility] Last Admin: 04/02/17 21:44 Dose: 10 mg Enalapril Maleate (Vasotec -) 20 mg PO DAILY [facility] Last Admin: 04/03/17 10:30 Dose: 20 mg Gemfibrozil (Lopid -) 600 mg PO DAILY [facility] Last Admin: 04/03/17 10:30 Dose: 600 mg Heparin Sodium (Porcine) (Heparin -) 5,000 unit SQ BID [facility] Last Admin: 04/03/17 10:30 Dose: 5,000 unit Metronidazole (Flagyl 500mg Premixed Ivpb -) 100 mls @ 100 mls/hr IVPB Q8H-IV [facility] Last Admin: 04/03/17 10:30 Dose: 100 mls/hr Insulin Aspart (Novolog Vial Sliding Scale -) 1 vial SQ ACHS [facility] PRN Reason: Protocol Last Admin: 04/03/17 11:40 Dose: Not Given Metoprolol Succinate (Toprol Xl -) 25 mg PO DAILY [facility] Last Admin: 04/03/17 10:31 Dose: 25 mg Terazosin HCl (Hytrin -) 2 mg PO DAILY [facility] Last Admin: 04/03/17 10:30 Dose: 2 mg - Objective Vital Signs: Vital Signs Temperature 98.5 F 04/03/17 09:04 Pulse Rate 76 04/03/17 09:04 Respiratory Rate 20 04/03/17 09:04 Blood Pressure 117/64 04/03/17 09:04 O2 Sat by Pulse Oximetry (%) 95 04/02/17 09:00 Labs: CBC, BMP 04/02/17 07:45 04/02/17 07:45 Problem List - Problems (1) Abdominal pain Code(s): R10.9 - UNSPECIFIED ABDOMINAL PAIN Qualifiers: Abdominal location: unspecified location (2) Liver metastasis Code(s): C78.7 - SECONDARY MALIG NEOPLASM OF LIVER AND INTRAHEPATIC BILE DUCT (3) Carcinoma of colon Code(s): C18.9 - MALIGNANT NEOPLASM OF COLON, UNSPECIFIED Assessment/Plan Patient has less abdominal apin, feels better, has been tolerating feeding. Abdomen is soft, not tender. No acute surgical condition at this time. Will sign out.
--- NOTE | 2017-04-03 14:15 | DS ---
Physical Exam: SUBJECTIVE: Patient seen and examined. Feels better. Abdominal pain is "very small." OBJECTIVE: Vital Signs Period Temp Pulse Resp BP Sys/Elder Pulse Ox Last 24 Hr 97.9 F-99.7 F 60-76 18-20 117-157/64-78 PHYSICAL EXAM GENERAL: The patient is awake, alert, and fully oriented, in no acute distress. HEAD: Normal with no signs of trauma. LUNGS: Breath sounds equal, clear to auscultation bilaterally, no wheezes, no crackles, no accessory muscle use. HEART: Regular rate and rhythm, S1, S2 without murmur, rub or gallop. ABDOMEN: Soft, mild RUQ tenderness, nondistended, normoactive bowel sounds, no guarding, no rebound EXTREMITIES: 2+ pulses, warm, well-perfused, no edema. NEUROLOGICAL: Cranial nerves II through XII grossly intact. Normal speech, moving all extremities. LABS CBCD WBC 4.6 K/mm3 (4.0-10.0) D 04/02/17 07:45 RBC 3.68 M/mm3 (4.00-5.60) L 04/02/17 07:45 Hgb 10.9 GM/dL (11.7-16.9) L 04/02/17 07:45 Hct 32.2 % (35.4-49) L 04/02/17 07:45 MCV 87.6 fl (80-96) 04/02/17 07:45 MCHC 33.7 g/dl (32.0-35.9) 04/02/17 07:45 RDW 18.3 % (11.9-15.9) H 04/02/17 07:45 Plt Count 166 K/MM3 (134-434) 04/02/17 07:45 MPV 6.6 fl (7.5-11.1) L 04/02/17 07:45 CMP Sodium 139 mmol/L (136-145) 04/02/17 07:45 Potassium 3.7 mmol/L (3.5-5.1) 04/02/17 07:45 Chloride 104 mmol/L (98-107) 04/02/17 07:45 Carbon Dioxide 26 mmol/L (21-32) 04/02/17 07:45 Anion Gap 9 (8-16) 04/02/17 07:45 BUN 5 mg/dL (7-18) L D 04/02/17 07:45 Creatinine 0.6 mg/dL (0.7-1.3) L 04/02/17 07:45 Creat Clearance w eGFR > 60 (>60) 04/02/17 07:45 Calcium 8.4 mg/dL (8.5-10.1) L 04/02/17 07:45 Total Bilirubin 0.7 mg/dL (0.2-1.0) 04/02/17 07:45 AST 89 U/L (15-37) H D 04/02/17 07:45 ALT 127 U/L (12-78) H 04/02/17 07:45 Alkaline Phosphatase 225 U/L (45-117) H 04/02/17 07:45 Total Protein 6.8 g/dl (6.4-8.2) 04/02/17 07:45 Albumin 3.3 g/dl (3.4-5.0) L 04/02/17 07:45 HOSPITAL COURSE Date of Admission:03/31/17 Date of Discharge: 04/03/17 Imaging 03/31 CTAP: possible minimal to mild ileus ASSESSMENT/PLAN 61 year-old male with a PMH of HTN, HLD, NIDDM, BPH, and metastatic colon cancer. Admitted with abdominal pain. Abdominal pain --seen and evaluated by surgery who reads CT scan as normal, no acute surgical event --NG tube removed; no nausea, vomiting; diet was advanced and tolerated --diarrhea resolved; C. diff antigen positive, toxin negative; started empiric flagyl for 7 day course Metastatic colon cancer --was due for chemo dose on 04/01; Dr. Marcum, oncologist at [facility] [place] aware Transaminitis --likely secondary to chemo --improving NIDDM --Novolog sliding scale coverage Hypertension --continued metoprolol, enalapril Hyperlipidemia --continued Lipitor BPH --continued terazosin Minutes to complete discharge: 35 Discharge Summary Reason For Visit: ILEUS Current Active Problems Abdominal pain (Acute) Carcinoma of colon (Acute) Colon cancer metastasized to liver (Acute) DVT prophylaxis (Acute) Diabetes mellitus (Acute) Dyslipidemia (Acute) Ileus (Acute) Liver metastasis (Acute) Transaminitis (Acute) Condition: Improved - Instructions Diet, Activity, Other Instructions: A prescription has been called to your pharmacy for an antibiotic. Take this medication as directed and be sure to finish all the medication. Return to the emergency department for any new or worsening symptoms. Referrals: Liz Dixon [Primary Care Provider] - Disposition: HOME - Home Medications Comprehensive Discharge Medication List: Ambulatory Orders Aspirin [ASA -] 81 mg PO DAILY 11/18/15 Atorvastatin Ca [Lipitor] 10 mg PO HS 11/18/15 Enalapril Maleate [Vasotec -] 20 mg PO DAILY 11/18/15 Gemfibrozil [Lopid -] 600 mg PO DAILY 11/18/15 Metformin HCl [Glucophage] 1,000 mg PO BID 11/18/15 Metoprolol Succinate [Toprol XL -] 25 mg PO DAILY 11/18/15 Terazosin HCl 2 mg PO DAILY 11/18/15 Metronidazole 500 mg PO TID #18 tablet 04/03/17 This patient is new to me today: No Emergency Visit: Yes ED Registration Date: 03/31/17 Care time: The patient presented to the Emergency Department on the above date and was hospitalized for further evaluation of their emergent condition. Critical Care patient: No - Discharge Referral Referred to [facility] No
[2017-04-03 14:48] VITALS: BP 153/57; PULSE 53; TEMP 98
== END 2017-04-03 18:24 | disposition home or self-care (01) | DRG 375 ==
LOC: JER 14:13 → JERBED 23:52 → UNDOADMIN 04-01 → J6S 04-01 02:34
PROVIDERS: ADMIT Internal Medicine; ATTEND Nurse Practitioner Acute Care
DX: C18.9 Malignant neoplasm of colon, unspecified (principal); K56.7 Ileus, unspecified; C78.7 Secondary malignant neoplasm of liver and intrahepatic bile duct; K56.60 Unspecified intestinal obstruction; E78.5 Hyperlipidemia, unspecified; R74.0 Nonspecific elevation of levels of transaminase and lactic acid dehydrogenase [LDH]; E11.9 Type 2 diabetes mellitus without complications; I10 Essential (primary) hypertension; N40.0 Benign prostatic hyperplasia without lower urinary tract symptoms; R10.9 Unspecified abdominal pain; D72.819 Decreased white blood cell count, unspecified
CPT/HCPCS: 36415; 71010-TC; 74177-TC; 80048; 80053; 81003; 82272; 83605; 83690; 85025; 87040; 87205; 87324; 87449; 93005; 93010; 99282-25; J1644

== ENCOUNTER 2017-04-04 20:22 | Emergency (ER) | payer OTHER ==
[2017-04-04 20:33] VITALS: BP 129/72; PULSE 65; TEMP 97; BMI 28.3
--- NOTE | 2017-04-04 22:52 | PDOC ---
History of Present Illness - General Chief Complaint: RX Refill Stated Complaint: REFILL RX Time Seen by Provider: 04/04/17 21:36 History Source: Patient Exam Limitations: No Limitations - History of Present Illness Initial Comments: 04/04/17 22:52 MY Chief Complaint: Rx for Flaygl not at pharmacy as ordered yesterday upon discharge History of Present Illness: pt. is a 61 yo M with PMH of NIDDM2, colon ca with liver mets (dx 4 yrs ago), hld, htn, who was admitted here on 03/31/17 due to an ileus and discharged from here on 04/03/17.He having had any diarrhea or bowel movement since his discharge from here yesterday. He was unable to get flagyl [facility] per granddaughter. Has been afebrile. His appetite is poor is drinking liquids. He has not had any vomiting or nausea. He has minimal pain rt. mid abdomen. 04/04/17 22:59 04/04/17 23:04 PAST SURGICAL HISTORY: s/p cholececomy Colon Resection Partial Colectomy Percutaneous drainage catheter Social History: Smoking: Never Alcohol: Denies Drugs: Denies Lives with family Family History: Non Contributory Allergies Penicillins Allergy (Intermediate, Verified 03/31/17 14:20) Rash 04/04/17 23:05 04/04/17 23:09 Timing/Duration: changing over time Severity: mild Associated Symptoms: reports: other. denies: nausea/vomiting Past History - Past Medical History Allergies/Adverse Reactions: Allergies Allergy/AdvReac Type Severity Reaction Status Date / Time Penicillins Allergy Intermediate Rash Verified 04/04/17 20:33 Home Medications: Ambulatory Orders Aspirin [ASA -] 81 mg PO DAILY 11/18/15 Atorvastatin Ca [Lipitor] 10 mg PO HS 11/18/15 Enalapril Maleate [Vasotec -] 20 mg PO DAILY 11/18/15 Gemfibrozil [Lopid -] 600 mg PO DAILY 11/18/15 Metformin HCl [Glucophage] 1,000 mg PO BID 11/18/15 Metoprolol Succinate [Toprol XL -] 25 mg PO DAILY 11/18/15 Terazosin HCl 2 mg PO DAILY 11/18/15 Metronidazole 500 mg PO TID #17 tablet 04/04/17 Cancer: Yes (colon, mets liver, Getting Chemo last dose 2 weeks ago) Diabetes: Yes GI Disorders: Yes (colon ca) HTN: Yes Hypercholesterolemia: Yes Liver Disease: Yes (ca) - Surgical History Cholecystectomy: Yes - Immunization History Immunization Up to Date: Yes - Psycho/Social/Smoking Cessation Hx Suicidal Ideation: No Smoking History: Never smoked Hx Alcohol Use: No Drug/Substance Use Hx: No Substance Use Type: None Review of Systems - Review of Systems Able to Perform ROS?: Yes Constitutional: Yes: Loss of Appetite, Weakness (generalized ) HEENTM: No: Symptoms Reported Respiratory: No: Symptoms reported Cardiac (ROS): No: Symptoms Reported ABD/GI: No: Symptoms Reported : No: Symptoms Reported Musculoskeletal: No: Symptoms Reported Integumentary: No: Symptoms Reported *Physical Exam - Vital Signs Last Vital Signs Temp Pulse Resp BP Pulse Ox 97 F L 65 18 129/72 99 04/04/17 20:29 04/04/17 20:29 04/04/17 20:29 04/04/17 20:29 04/04/17 20:29 - Physical Exam General Appearance: Yes: Appropriately Dressed Respiratory/Chest: positive: Lungs Clear, Normal Breath Sounds. negative: Chest Tender, Respiratory Distress Cardiovascular: positive: Regular Rhythm, Regular Rate, S1, S2 Gastrointestinal/Abdominal: positive: Normal Bowel Sounds, Tender (minimal rt. mid abdomen ), Soft, Other (port left mid abdomen). negative: Organomegaly, Distended, Guarding, Rebound, Hepatomegaly, Spleenomegaly Integumentary: positive: Normal Color Neurologic: positive: Alert, Normal Response, Responsive Medical Decision Making - Medical Decision Making 04/04/17 23:11 pt. is a 61 yo M with PMH of NIDDM2, colon ca with liver mets (dx 4 yrs ago), hld, htn, who was admitted here on 03/31/17 due to an ileus and discharged from here on 04/03/17.He having had any diarrhea or bowel movement since his discharge from here yesterday. He was unable to get flagyl was not sent [facility] per granddaughter. Has been afebrile. His appetite is poor is drinking liquids. He has not had any vomiting or nausea. He has minimal pain rt. mid abdomen. Discharge summary from 04/03/2017 states " C. diff antigen positive, toxin negative; will start empiric flagyl for 7 day course" 18 tablets needs rx for flagyl PLAN: flagyl 500 mg po now than tid total of 17 tabs 04/04/17 23:14 *DC/Admit/Observation/Transfer Diagnosis at time of Disposition: Electronic prescription transmitted - Discharge Dispostion Disposition: HOME Condition at time of disposition: Stable - Prescriptions Prescriptions: Metronidazole 500 mg PO TID #17 tablet - Patient Instructions Additional Instructions: Follow-up with doctors as indicated on your discharge summary on 04/03/2017 Take medication as ordered today sent to [facility] complete all pills Return to emergency room if symptoms worsen or any new symptoms develop Patient and family voiced understanding of discharge instructions and all questions were answered
[2017-04-04] MEDS ORDERED: metroNIDAZOLE 500 MG TABLET PO ONE (22:54)
[2017-04-04] MEDS ORDERED: metroNIDAZOLE 250 MG TABLET ONE (22:56)
== END 2017-04-04 23:31 | disposition home or self-care (01) ==
LOC: JERFT 20:22
DX: Z76.0 Encounter for issue of repeat prescription (principal); I10 Essential (primary) hypertension; E11.9 Type 2 diabetes mellitus without complications; Z79.84 Long term (current) use of oral hypoglycemic drugs; E78.00 Pure hypercholesterolemia, unspecified; Z85.038 Personal history of other malignant neoplasm of large intestine; Z85.05 Personal history of malignant neoplasm of liver
CPT/HCPCS: 99281-25